=== PATIENT | female | born 1960 | race Caucasian/White ===

== ENCOUNTER → 2020-05-18 10:20 | Outpatient (CLI) | payer BC, SELFPAY ==
--- NOTE | ~2020-05-18 | DEXA_ITS ---
Bone Density Report Name: Jackie Whaley Age: 59 Sex: Female Ethnicity: White Date of : 1960 Indication: postmenopausal; screening for osteoporosis; height loss; asthma or emphysema; Referring Provider: LISA KOLB Study: Bone densitometry was performed. Exam Date: May 18, 2020 Accession number: [id number] Bone Density: Region BMD T-score Z-score Classification AP Spine (L2, L3, L4) 1.106 0.2 1.6 Normal Femoral Neck (Left) 0.734 -1.0 0.2 Normal Total Hip (Left) 1.028 0.7 1.6 Normal Femoral Neck (Right) 0.770 -0.7 0.5 Normal Total Hip (Right) 1.001 0.5 1.3 Normal Total Hip Mean 1.015 0.6 1.5 Normal World Health Organization criteria for BMD impression classify patients as: Normal (T-score at or above -1.0), Osteopenia (T-score between -1.0 and -2.5), or Osteoporosis (T-score at or below -2.5). 10-year Fracture Risk: FRAX not reported because: All T-scores for Spine Total, Hip Total, Femoral Neck at or above -1.0 Clinical Information Provided by Patient: Has used the following medications: Vitamin D, Calcium Has the following medical conditions: Asthma or Emphysema Patient maximum height was 64 Menopause Age: 57 No regular weight bearing exercise Does not regularly consume dairy products Drinks caffeinated beverages Onset of menses at age 14 Number of children 1 Impression: The patient has normal bone mass. Discussion: BONE DENSITY IS ABOVE THE MINIMUM DESIRABLE LEVEL AT ALL SKELETAL SITES TESTED. This patient?s bone mineral density is above the minimum desirable level (T-score -1.0 or better) at all sites measured. The patient should follow a healthful lifestyle (good nutrition with adequate calcium and vitamin D, and appropriate weight-bearing exercise). Follow-Up: Consider repeating this study in 5 years or sooner if there is some new clinical indication. Reported by: [facility] on 05/18/2020 10:52:00 AM. Reviewed, dictated and finalized at location [facility]
== END ==
PROVIDERS: PCP Family Medicine; Visit Provider Family Medicine
DX: Z78.0 Asymptomatic menopausal state (principal)
CPT/HCPCS: 77080

== ENCOUNTER 2021-06-20 08:05 | Outpatient (CLI) | payer BC, SELFPAY ==
--- NOTE | 2021-06-20 08:00 | ECG_ITS ---
Measurements Intervals [place] Rate: 76 P: 11 FL: 137 QRS: -7 QRSD: 109 T: 33 QT: 350 QTc: 395 Interpretive Statements SINUS RHYTHM DELAYED PRECORDIAL R/S TRANSITION MINIMAL Q WAVES- HIGH LATERAL LEADS BASELINE ARTIFACT- I, III, AVR, AVL, AVF BORDERLINE ECG Electronically Signed On 06-20-2021 8:35:05 CDT by Chi Bangura D.O.
[2021-06-20 08:48] LABS: Anion Gap 10 mmol/L (8-16); Blood Urea Nitrogen 14 mg/dL (7-17); Calcium 9.4 mg/dL (8.4-10.2); Carbon Dioxide 29 mmol/L (22-30); Chloride 96 mmol/L (98-107); Estimated Glomerular Filt Rate > 60; Glucose 98 mg/dL (65-110); Potassium 4.1 mmol/L (3.4-5.0); Sodium 135 mmol/L (137-145)
== END 2021-06-20 08:06 | disposition home or self-care (01) ==
PROVIDERS: Anesthesiology; PCP Family Medicine; Visit Provider Surgery Plastic and Reconstructive Surgery
DX: I10 Essential (primary) hypertension (principal); Z01.818 Encounter for other preprocedural examination; R94.31 Abnormal electrocardiogram [ECG] [EKG]
CPT/HCPCS: 36415; 80048; 93005

== ENCOUNTER 2021-06-25 01:28 | Day surgery (SDC) | payer BC, SELFPAY ==
[2021-06-19 15:34] VITALS: BMI 39.8
--- NOTE | 2021-06-24 13:25 | WPDANESEPPF ---
Anes - Initial Pre Proc Eval Procedure: Operation Date: 06/25/21 13:30 Proposed Procedures p Excision Mass Frontal Scalp - Jun Darden MD Date/Time: 06/24/21 13:25 Surgeon: Jun Darden MD Pre Op Diagnosis: mass frontal scalp Patient Data Age: 60 Gender: F Height: 1.6 m Weight: 102 kg Allergies Allergy/AdvReac Type Severity Reaction Status Date / Time ibuprofen Allergy Intermediate tongue Verified 07/01/21 14:14 itching latex Allergy Intermediate Blister Verified 07/01/21 14:14 naproxen Allergy Intermediate tongue Verified 07/01/21 14:14 itching,red skin Penicillins Allergy Intermediate tongue Verified 07/01/21 14:14 itching, tongue swelling ENVIRONMENTAL Allergy Mild SEVERE Uncoded 06/19/21 15:11 ALLERGENS--CATS, MOLD, DUST, EXACERBATION RAGWEED, CARAMEL OF ASTHMA ANTI INFLAMMATORY AdvReac Mild TONGUE Uncoded 06/19/21 15:11 ITCHING Home Medications Medication Instructions Recorded Confirmed Type albuterol sulfate 90 mcg/actuation 1 inhalation INHALATION Q4H 10/18/19 06/25/21 History aerosol inhaler cetirizine 10 mg tablet 10 mg PO DAILY 10/18/19 06/25/21 History fluticasone 500 mcg-salmeterol 50 1 inhalation INHALATION Q12H 10/18/19 06/25/21 History mcg/dose blistr powdr for inhalation hydrochlorothiazide 12.5 mg tablet 12.5 mg PO DAILY #90 tablet 09/11/20 06/25/21 Rx omeprazole 20 mg capsule,delayed See Rx Instructions .ROUTE 11/16/20 06/25/21 Rx release .COMPLEX #90 cap triamcinolone acetonide 0.1 % See Rx Instructions .ROUTE 02/11/21 06/19/21 Rx topical cream .COMPLEX #80 g benazepril 20 mg tablet See Rx Instructions .ROUTE 02/14/21 06/25/21 Rx .COMPLEX #90 tablet hydrocodone 5 mg-acetaminophen 325 1 tablet PO Q6H PRN #15 tablet 06/12/21 06/25/21 Rx mg tablet Mucinex DM 1 tablet PO Q12H PRN 06/19/21 06/25/21 History PMFSH Past Medical History Medical History Essential (primary) hypertension Mixed hyperlipidemia Moderate persistent asthma with (acute) exacerbation Obstructive sleep apnea (adult) (pediatric) Prediabetes Primary hypersomnia Primary osteoarthritis of both knees Sebaceous cyst Varices of other sites Surgical History Surgical History H/O right breast biopsy (~06/11/21) History of colonoscopy History of foot surgery History of medial meniscus repair of right knee Hx of LASIK Family History Family History Father Family history of chronic obstructive pulmonary disease Family history of cardiovascular disease Mother Family history of pancreatic cancer Family history of malignant neoplasm of ovary Sibling Family history of malignant neoplasm of breast Other Family history of arthritis Family history of malignant neoplasm Hypertension Social History Social History Smoking status: Never smoker Second hand tobacco smoke exposure: No Alcohol intake: current Drinks per week: 1 Substance use: never Spiritual care concerns: No Anes - Eval Final PreProcedure Day of Procedure 06/24/21 13:25 Patient weight: morbidly obese Heart: regular rate and rhythm Lungs: clear to auscultation Airway: Mallampati scale class II Informed Consent: The patient's anesthetic plan and its attendant risks and benefits were discussed with the patient/family/POA. Questions were solicited and answers provided to the satisfaction of the patient/family/POA.
[2021-06-25 11:44] VITALS: BP 129/68; PULSE 88; RESP 16; TEMP 36.7; O2SAT 99
[2021-06-25] MEDS: LACTATED RINGERS 1,000 ML 30 ML IV CONT (12:16)
--- NOTE | 2021-06-25 12:35 | WPDHPUPDATE1 ---
History and Physical Update Update Date/Time: 06/25/21 12:35 History and Physical has been reviewed, including an updated exam of the patient. There are NO changes in the patient's condition. Risks, benefits, and alternatives have been discussed and questions answered. Patient agrees to proceed with procedure.
--- NOTE | 2021-06-25 12:57 | W.PM.PROC2 ---
Procedure Note - Detailed Date of Procedure 06/25/21 Pre-op Diagnosis Mass central forehead Post-op Diagnosis same Procedure Performed Excision subcutaneous mass forehead 1.4cm Surgeon Jun Darden MD Anesthesia MAC Findings Appearance consistant with osteoma. Description of Procedure Risks, benefits, alternatives were discussed in extensive detail in the preoperative holding area. All questions answered to her satisfaction along with her daughter. Consent obtained. She would like proceed. The the areas marked with her verification. Taken to the operating room placed supine on the operating room table. Anesthesia provided by anesthesiology and prepped and draped in a standard sterile fashion. Surgical time-out was taken. 1% lidocaine and 0.25% Marcaine with epinephrine was used anesthetize locally. Fifteen blade used to excise the previous scar were attempted excision had been completed by someone else in an office setting. Dissection was continued down and the muscle was split however not cut. I continued down to the osteoma was identified. A rongeur was used followed by a rasp to remove. This was sent to pathology. This was removed and sent to pathology. Copiously irrigated with saline solution. I repaired the muscle with 4-0 Biosyn. This is followed by 5 0 nylon in the skin and appointment. She was woken taken to the PACU without difficulty. All instrument sponge counts were correct at the end of the case. Estimated Blood Loss 2 Drains No Packing No Pathology yes Complications No immediate complications Condition stable Disposition PACU
--- NOTE | 2021-06-25 13:01 | WPDANESEPPF ---
Anes - Initial Pre Proc Eval Procedure: Operation Date: 06/25/21 13:30 Proposed Procedures p Excision Mass Frontal Scalp - Jun Darden MD Date/Time: 06/25/21 13:01 Surgeon: Jun Darden MD Pre Op Diagnosis: mass frontal scalp Patient Data Age: 60 Gender: F Height: 1.6 m Weight: 102 kg Last Vital Signs Temp 36.7 C 06/25/21 11:44 Pulse 88 06/25/21 11:44 Resp 16 06/25/21 11:44 BP 129/68 06/25/21 11:44 Pulse Ox 99 06/25/21 11:44 Allergies Allergy/AdvReac Type Severity Reaction Status Date / Time ibuprofen Allergy Intermediate tongue Verified 06/25/21 11:56 itching latex Allergy Intermediate Blister Verified 06/25/21 11:56 naproxen Allergy Intermediate tongue Verified 06/25/21 11:56 itching,red skin Penicillins Allergy Intermediate tongue Verified 06/25/21 11:56 itching, tongue swelling ENVIRONMENTAL Allergy Mild SEVERE Uncoded 06/19/21 15:11 ALLERGENS--CATS, MOLD, DUST, EXACERBATION RAGWEED, CARAMEL OF ASTHMA ANTI INFLAMMATORY AdvReac Mild TONGUE Uncoded 06/19/21 15:11 ITCHING Home Medications Medication Instructions Recorded Confirmed Type albuterol sulfate 90 mcg/actuation 1 inhalation INHALATION Q4H 10/18/19 06/25/21 History aerosol inhaler cetirizine 10 mg tablet 10 mg PO DAILY 10/18/19 06/25/21 History fluticasone 500 mcg-salmeterol 50 1 inhalation INHALATION Q12H 10/18/19 06/25/21 History mcg/dose blistr powdr for inhalation hydrochlorothiazide 12.5 mg tablet 12.5 mg PO DAILY #90 tablet 09/11/20 06/25/21 Rx omeprazole 20 mg capsule,delayed See Rx Instructions .ROUTE 11/16/20 06/25/21 Rx release .COMPLEX #90 cap triamcinolone acetonide 0.1 % See Rx Instructions .ROUTE 02/11/21 06/19/21 Rx topical cream .COMPLEX #80 g benazepril 20 mg tablet See Rx Instructions .ROUTE 02/14/21 06/25/21 Rx .COMPLEX #90 tablet hydrocodone 5 mg-acetaminophen 325 1 tablet PO Q6H PRN #15 tablet 06/12/21 06/25/21 Rx mg tablet dextromethorphan-guaifenesin 1 tablet PO Q12H PRN 06/19/21 06/25/21 History [Mucinex DM] Patient hx anesthesia problems: none Family hx anesthesia problems: none [facility] Past Medical History Medical History (Updated 06/24/21 @ 13:25 by Bereket Drake MD) Essential (primary) hypertension Mixed hyperlipidemia Moderate persistent asthma with (acute) exacerbation Obstructive sleep apnea (adult) (pediatric) Prediabetes Primary hypersomnia Primary osteoarthritis of both knees Sebaceous cyst Varices of other sites Surgical History Surgical History H/O right breast biopsy (~06/11/21) History of colonoscopy History of foot surgery History of medial meniscus repair of right knee Hx of LASIK Family History Family History Father Family history of chronic obstructive pulmonary disease Family history of cardiovascular disease Mother Family history of pancreatic cancer Family history of malignant neoplasm of ovary Sibling Family history of malignant neoplasm of breast Other Family history of arthritis Family history of malignant neoplasm Hypertension Social History Social History Second hand tobacco smoke exposure: No Alcohol intake: current Drinks per week: 1 Substance use: never Living arrangements: alone Spiritual care concerns: No Anes - Eval Final PreProcedure Day of Procedure 06/25/21 13:01 Patient weight: obese Heart: regular rate and rhythm Lungs: clear to auscultation and normal air movement Airway: Mallampati scale class II Neurological: alert and oriented Last oral intake: >/= 8 hours ASA classification: III Emergent: no Anesthetic plan: proceed Anesthesia type and monitoring: general LMA and standard monitoring Informed Consent: The patient's anesthetic plan and its attendant
[2021-06-25] MEDS: ceFAZolin 2 GM/D5W 50 ML 2 GM/50 ML BAG IVPB (13:17)
[2021-06-25] MEDS: LIDO 1%/EPINEPHRINE/PF 1:200,000 30 ML VIAL 10 ML XX (13:45)
[2021-06-25] MEDS: BUPIVACAINE HCL 0.25% PF 30 ML VIAL 5 ML INFILTRATE (13:47)
[2021-06-25 14:04] VITALS: BP 115/70; PULSE 86; RESP 14; TEMP 36.6; O2SAT 99
[2021-06-25 14:15] VITALS: BP 129/71; PULSE 88; RESP 16; O2SAT 99
[2021-06-25 14:25] VITALS: BP 134/71; PULSE 90; RESP 20; O2SAT 99
[2021-06-25 14:29] VITALS: BP 129/69; PULSE 78; RESP 20
[2021-06-25 14:50] VITALS: BP 143/72; PULSE 81; RESP 20
== END 2021-06-25 14:58 | disposition home or self-care (01) ==
PROVIDERS: PCP Family Medicine; Visit Provider Surgery Plastic and Reconstructive Surgery
PROC: (CPT 21013; principal; 2021-06-25 13:30)
DX: D16.4 Benign neoplasm of bones of skull and face (principal); I10 Essential (primary) hypertension; G47.33 Obstructive sleep apnea (adult) (pediatric); J45.40 Moderate persistent asthma, uncomplicated; E66.01 Morbid (severe) obesity due to excess calories; Z68.39 Body mass index [BMI] 39.0-39.9, adult; Z79.899 Other long term (current) drug therapy; Z88.0 Allergy status to penicillin; Z91.040 Latex allergy status
CPT/HCPCS: 21013; 88304; 88305; 88311; J0690; J1100; J2405; J2704; J7120

== ENCOUNTER 2023-01-02 00:29 | Day surgery (SDC) | payer BC, SELFPAY ==
[2022-12-22 13:34] VITALS: BMI 42.3
[2023-01-02 10:35] VITALS: BP 161/76; PULSE 110; RESP 18; TEMP 36.6; O2SAT 97; BMI 42.2
--- NOTE | 2023-01-02 10:57 | PM.HPGS ---
History of Present Illness History of Present Illness Consent: Risks, benefits, and alternatives have been discussed and questions answered. Patient agrees to proceed with procedure. Chief complaint: neoplasm screening Narrative: Jackie Whaley is a 62 year old female here for screening colonoscopy, last one 11 years ago Review of Systems Constitutional: Constitutional: Denies headache(s) and Denies weakness Eyes: Eyes: Denies blurry vision ENT: Reports Normal hearing present, Denies headache(s) and Denies neck pain Cardiovascular: Cardiovascular: Denies chest pain and Denies dyspnea Respiratory: Respiratory: Denies dyspnea Gastrointestinal: Gastrointestinal: Reports no additional gastrointestinal complaints Genitourinary: Genitourinary: Denies dysuria Musculoskeletal: Musculoskeletal: Denies neck pain Integumentary/Breasts: Skin/Breast: Denies dry skin Neurologic: Reports Normal hearing present, Denies headache(s) and Denies weakness Psychiatric: Psychiatric: Denies anxiety Endocrine: Endocrine: Denies change in body appearance Hematologic/Lymphatic: Hematologic/Lymphatic: Denies easy bleeding Allergic/Immunologic: Allergic/Immunologic: Denies urticaria PMFSH Past Medical History Medical History (Updated 01/02/23 @ 11:00 by Casey Orozco MD) Colon cancer screening Essential (primary) hypertension Mixed hyperlipidemia Moderate persistent asthma with (acute) exacerbation Obstructive sleep apnea (adult) (pediatric) Prediabetes Primary hypersomnia Primary osteoarthritis of both knees Sebaceous cyst Varices of other sites Surgical History Surgical History H/O right breast biopsy (~06/11/21) History of colonoscopy History of foot surgery History of medial meniscus repair of right knee Hx of LASIK Family History Family History Father Family history of chronic obstructive pulmonary disease Family history of cardiovascular disease Mother Family history of pancreatic cancer Family history of malignant neoplasm of ovary Sibling Family history of malignant neoplasm of breast Other Family history of arthritis Family history of malignant neoplasm Hypertension Social History Social History Smoking status: Never smoker Second hand tobacco smoke exposure: No Alcohol intake: current Drinks per week: 1 Alcohol use details: 2 per month Substance use: never Living arrangements: alone Spiritual care concerns: No Meds Home Medications and Allergies Home Medications Medication Instructions Recorded Confirmed Type albuterol sulfate 90 mcg/actuation 1 inhalation inhalation Q4H PRN 10/18/19 01/02/23 History aerosol inhaler (Proventil HFA) Shortness Of Breath cetirizine 10 mg tablet 10 mg PO DAILY 10/18/19 01/02/23 History fluticasone 500 mcg-salmeterol 50 1 inhalation inhalation Q12H 10/18/19 01/02/23 History mcg/dose blistr powdr for inhalation (Advair Diskus) dextromethorphan-guaifenesin 30 1 tablet PO Q12H PRN Allergic 06/19/21 01/02/23 History mg-600 mg tablet extended Symptoms [id number] hr (Mucinex DM) benazepril 20 mg tablet See Rx Instructions .Route 08/13/22 01/02/23 Rx .COMPLEX #90 tabs hydrochlorothiazide 25 mg tablet 25 mg PO DAILY #90 tabs 11/25/22 01/02/23 Rx omeprazole 20 mg capsule,delayed See Rx Instructions .Route 12/08/22 01/02/23 Rx release .COMPLEX #30 caps Allergies Allergy/AdvReac Type Severity Reaction Status Date / Time ibuprofen Allergy Intermediate tongue Verified 01/02/23 10:46 itching latex Allergy Intermediate Blister Verified 01/02/23 10:46 naproxen Allergy Intermediate tongue Verified 01/02/23 10:46 itching,red skin Penicillins Allergy Intermediate tongue Verified 01/02/23 10:46 itching, tongue swel
[2023-01-02] MEDS: LACTATED RINGERS 1,000 ML 150 ML IV CONT (10:58)
--- NOTE | 2023-01-02 11:00 | WPDANESEPPF ---
Anes - Initial Pre Proc Eval Procedure: Operation Date: 01/02/23 12:30 Proposed Procedures p Screening Colonoscopy - Casey Orozco MD Date/Time: 01/02/23 11:00 Surgeon: Casey Orozco MD Pre Op Diagnosis: neoplasm screening Patient Data Age: 62 Gender: F Height: 1.63 m Weight: 111.5 kg Last Vital Signs Temp 97.9 F 01/02/23 10:35 Pulse 110 H 01/02/23 10:35 Resp 18 01/02/23 10:35 BP 161/76 H 01/02/23 10:35 Pulse Ox 97 01/02/23 10:35 O2 Del Method Room Air 01/02/23 10:35 Allergies Allergy/AdvReac Type Severity Reaction Status Date / Time ibuprofen Allergy Intermediate tongue Verified 01/02/23 10:46 itching latex Allergy Intermediate Blister Verified 01/02/23 10:46 naproxen Allergy Intermediate tongue Verified 01/02/23 10:46 itching,red skin Penicillins Allergy Intermediate tongue Verified 01/02/23 10:46 itching, tongue swelling ENVIRONMENTAL Allergy Mild SEVERE Uncoded 01/02/23 10:46 ALLERGENS--CATS, MOLD, DUST, EXACERBATION RAGWEED, CARAMEL OF ASTHMA ANTI INFLAMMATORY AdvReac Mild TONGUE Uncoded 01/02/23 10:46 ITCHING Home Medications Medication Instructions Recorded Confirmed Type albuterol sulfate 90 mcg/actuation 1 inhalation inhalation Q4H PRN 10/18/19 01/02/23 History aerosol inhaler (Proventil HFA) Shortness Of Breath cetirizine 10 mg tablet 10 mg PO DAILY 10/18/19 01/02/23 History fluticasone 500 mcg-salmeterol 50 1 inhalation inhalation Q12H 10/18/19 01/02/23 History mcg/dose blistr powdr for inhalation (Advair Diskus) dextromethorphan-guaifenesin 30 1 tablet PO Q12H PRN Allergic 06/19/21 01/02/23 History mg-600 mg tablet extended Symptoms [id number] hr (Mucinex DM) benazepril 20 mg tablet See Rx Instructions .Route 08/13/22 01/02/23 Rx .COMPLEX #90 tabs hydrochlorothiazide 25 mg tablet 25 mg PO DAILY #90 tabs 11/25/22 01/02/23 Rx omeprazole 20 mg capsule,delayed See Rx Instructions .Route 12/08/22 01/02/23 Rx release .COMPLEX #30 caps Patient hx anesthesia problems: none Family hx anesthesia problems: none Results Review: All pre-operative results and documents have been reviewed as part of the pre-operative evaluation. [facility] Past Medical History Medical History (Updated 01/02/23 @ 11:00 by Casey Orozco MD) Colon cancer screening Essential (primary) hypertension Mixed hyperlipidemia Moderate persistent asthma with (acute) exacerbation Obstructive sleep apnea (adult) (pediatric) Prediabetes Primary hypersomnia Primary osteoarthritis of both knees Sebaceous cyst Varices of other sites Surgical History Surgical History H/O right breast biopsy (~06/11/21) History of colonoscopy History of foot surgery History of medial meniscus repair of right knee Hx of LASIK Family History Family History Father Family history of chronic obstructive pulmonary disease Family history of cardiovascular disease Mother Family history of pancreatic cancer Family history of malignant neoplasm of ovary Sibling Family history of malignant neoplasm of breast Other Family history of arthritis Family history of malignant neoplasm Hypertension Social History Social History Smoking status: Never smoker Second hand tobacco smoke exposure: No Alcohol intake: current Drinks per week: 1 Alcohol use details: 2 per month Substance use: never Living arrangements: alone Spiritual care concerns: No Anes - Eval Final PreProcedure Day of Procedure 01/02/23 11:00 Patient weight: morbidly obese Heart: regular rate and rhythm Lungs: clear to auscultation Airway: Mallampati scale class II Neurological: alert and oriented Last oral intake: >/= 8 hours ASA classification: III Em
[2023-01-02 11:20] VITALS: BP 124/82; PULSE 100; RESP 22; O2SAT 99
[2023-01-02 11:30] VITALS: BP 136/76; PULSE 99; RESP 17; O2SAT 99
[2023-01-02 11:40] VITALS: BP 149/75; PULSE 99; RESP 20; O2SAT 97
== END 2023-01-02 11:52 | disposition home or self-care (01) ==
PROVIDERS: PCP Family Medicine; Visit Provider Internal Medicine Gastroenterology
PROC: 0DJD8ZZ Inspection of Lower Intestinal Tract, Via Natural or Artificial Opening Endoscopic (ICD-10-PCS; CPT 45378; principal; 2023-01-02 12:30)
DX: Z12.11 Encounter for screening for malignant neoplasm of colon (principal); K64.8 Other hemorrhoids; E78.2 Mixed hyperlipidemia; I10 Essential (primary) hypertension; J45.40 Moderate persistent asthma, uncomplicated; G47.33 Obstructive sleep apnea (adult) (pediatric); E66.01 Morbid (severe) obesity due to excess calories; Z68.41 Body mass index [BMI] 40.0-44.9, adult; Z79.51 Long term (current) use of inhaled steroids
CPT/HCPCS: 45378; J2704; J7120

== ENCOUNTER 2024-06-17 07:49 | Outpatient (CLI) | payer BC, SELFPAY | END 2024-06-17 07:50 | disposition home or self-care (01) | LOC: ANHAUDIO 07:49 | PROVIDERS: PCP Family Medicine; Visit Provider Otolaryngology | DX: H93.A1 Pulsatile tinnitus, right ear (principal); H90.71 Mixed conductive and sensorineural hearing loss, unilateral, right ear, with unrestricted hearing on the contralateral side; H90.3 Sensorineural hearing loss, bilateral | CPT/HCPCS: 92557; 92567 ==

== ENCOUNTER 2024-07-11 08:08 | Outpatient (CLI) | payer BC, SELFPAY ==
--- NOTE | ~2024-07-11 | CT_ITS ---
CTA brain Ordering provider: Anjel Emmanuel M.D. History: . Mixed conductive and sensorineural hearing loss, unilateral, . Comparison: None. Technique: CT angiogram head was performed following timed intravenous injection of contrast. Thin sl ice axial images and reformatted coronal images were obtained. Three dimensional reformatted images o f the brain were also obtained using a [employer] workstation. Radiation reduction technique utilized. D LP is 1238.95mGy-cm. 100 mL Omnipaque 350 was given IV. FINDINGS: --ANTERIOR AND MIDDLE CEREBRAL ARTERIES AND BRANCHES: Normal caliber and contour. --INTERNAL CAROTID ARTERIES: Normal caliber and contour. --BASILAR ARTERY AND BRANCHES: Normal caliber and contour. No atheromatous disease. Dominant left vertebral artery. --POSTERIOR CEREBRAL ARTERIES: Normal caliber and contour --POSTERIOR COMMUNICATING ARTERIES: Not visualized which is probably related to congenital absence or small size. --ANEURYSM: None visualized. --BRAIN: No acute intracranial process.Calcified meningioma versus osteoma in the left frontal bone i s noted and measures 1.2 x 1 x 1.2 cm. No definite midline shift or mass effect demonstrated. Minimal linear enhancement in the outer area is possible. --BONES AND SUPERFICIAL SOFT TISSUES: Normal. --PARANASAL SINUSES AND MASTOIDS: Normal. IMPRESSION: No acute intracranial process. Meningioma in the left frontal lobe area with minimal enhancement in the peripheral portion and calci fied central portion. No evidence of aneurysmal dilatation seen. Reviewed, dictated and finalized at location A. IMPRESSION: No acute intracranial process. Meningioma in the left frontal lobe area with minimal enhancement in the periph eral portion and calcified central portion. No evidence of aneurysmal dilatation seen.
[2024-07-11 08:35] LABS: Estimated Glomerular Filt Rate > 60
== END 2024-07-11 08:09 | disposition home or self-care (01) ==
PROVIDERS: PCP Family Medicine; Visit Provider Otolaryngology
DX: H90.71 Mixed conductive and sensorineural hearing loss, unilateral, right ear, with unrestricted hearing on the contralateral side (principal); H93.A1 Pulsatile tinnitus, right ear
CPT/HCPCS: 70496; Q9967

== ENCOUNTER 2024-07-11 08:24 | Outpatient (CLI) | payer BC, SELFPAY ==
--- NOTE | ~2024-07-11 | XR_ITS ---
EXAMINATION: [id number]_[id number]_CR DATE: 07/11/2024 09:05 INDICATION: Bilateral primary osteoarthritis of knee. Bilateral knee pain. TECHNIQUE: 2 views of left knee standing were obtained. COMPARISON: None. FINDINGS: There is varus attenuation the knee. No fracture. There is severe osteoarthritis of medial and patellofemoral compartments and moderate osteoarthritis of lateral compartment. No knee joint eff usion. IMPRESSION: 1. Severe left knee osteoarthritis. Reviewed, dictated and finalized at location A.
--- NOTE | ~2024-07-11 | XR_ITS ---
EXAMINATION: [id number]_CR DATE: 07/11/2024 09:05 INDICATION: Bilateral primary osteoarthritis of knee. Bilateral knee pain. TECHNIQUE: 2 views of right knee standing were obtained. COMPARISON: None. FINDINGS: There is varus attenuation the knee. No fracture. There is severe osteoarthritis of medial and patellofemoral compartments and moderate osteoarthritis of lateral compartment. No knee joint eff usion. IMPRESSION: 1. Severe right knee osteoarthritis. Reviewed, dictated and finalized at location A.
== END 2024-07-11 08:25 | disposition home or self-care (01) ==
PROVIDERS: PCP Family Medicine; Visit Provider Student in an Organized Health Care Education/Training Program
DX: M17.0 Bilateral primary osteoarthritis of knee (principal)
CPT/HCPCS: 73560